=== PATIENT | female | born 1970 | race Caucasian/White ===

== ENCOUNTER 2016-10-07 05:21 | Emergency (ER) | payer OTHER ==
[~2016-10-07] VITALS: Ht 157.5 cm; Wt 86.2 kg
[2016-10-07 06:25] LABS: Basophils # (auto) 0 uL; Eosinophils # (auto) 0.1 uL; Eosinophils % (auto) 0.4 % (0.0-7.0); Hematocrit 48.1 % (36.0-46.0); Hemoglobin 15.8 g/dL (12.2-16.2); Lymphocytes # (auto) 1.8 uL; Lymphocytes % (auto) 11.3 % (10.0-50.0); Mean Corpuscular Hemoglobin 28.7 pg (28.0-32.0); Mean Corpuscular Hgb Conc. 32.8 g/dL (32.0-36.0); Mean Corpuscular Volume 87.7 fL (80.0-100.0); Mean Platelet Volume 8.7 fL (7.4-10.4); Monocytes # (auto) 0.2 uL; Monocytes % (auto) 1.3 % (0.0-12.0); Neutrophils # (auto) 13.5 uL; Platelet Count (auto) 304 10^3/uL (140-450); White Blood Cell 15.6 10^3/uL (4.4-10.8)
[2016-10-07] MEDS ORDERED: cloNIDine HCL 0.1 MG TAB ONE (06:52)
[2016-10-07] MEDS ORDERED: SODIUM CHLORIDE 0.9% 1,000 ML IV ONE (07:00)
[2016-10-07] MEDS ORDERED: cloNIDine HCL 0.1 MG TAB PO ONE (07:00)
[2016-10-07 07:03] LABS: Albumin 3.7 g/dL (3.4-5.0); BUN/Creatinine Ratio 9.3; Calcium 8.5 mg/dL (8.5-10.1); Potassium 3.8 mmol/L (3.5-5.1); Total Protein 7.5 g/dL (6.4-8.2)
[2016-10-07 07:12] LABS: Urine Bilirubin Negative (Negative); Urine Color Red (Yellow); Urine Glucose Normal (Normal); Urine Ketone TRACE (Negative); Urine Mucus FEW (None Seen); Urine Nitrite Negative (Negative); Urine RBC 4236 /hpf (0 - 4); Urine Squamous Epithelial Cell FEW /hpf (<5); Urine Urobilinogen Normal (Negative)
[2016-10-07 07:44] LABS: Urine Blood 3+ /uL (Negative)
[2016-10-07] MEDS ORDERED: PROMETHAZINE W/CODEINE 5 ML ORAL SYRUP PO ONE (08:00)
[2016-10-07 08:02] LABS: Lactic Acid 2.7 mmol/L (0.4-2.0)
[2016-10-07 08:06] LABS: REFLEX LACTIC ACID YES OR NO YES
[2016-10-07 08:29] VITALS: BP 163/93
[2016-10-07] MEDS ORDERED: cefTRIAXone 1GM/50ML D5W 50 ML IV ONE (08:30)
== END 2016-10-07 08:47 | disposition home or self-care (01) ==
LOC: ER 05:25
DX: J18.0 Bronchopneumonia, unspecified organism (principal); E86.0 Dehydration; R73.9 Hyperglycemia, unspecified; R74.0 Nonspecific elevation of levels of transaminase and lactic acid dehydrogenase [LDH]; N39.0 Urinary tract infection, site not specified; I10 Essential (primary) hypertension
CPT/HCPCS: 36415; 71010; 80053; 81001; 81025; 83605; 84484; 85025; 85049; 87040; 93005; 96361; 96365; 99285; J0696